=== PATIENT | female | born 1965 | race Caucasian/White ===

== ENCOUNTER 2016-11-12 07:21 | Day surgery (SDC) | payer BC ==
[2016-11-12] MEDS ORDERED: MIDAZOLAM HCL 2MG/2ML VIAL IV ONE (14:00)
[2016-11-12] MEDS ORDERED: KETOROLAC 30 MG/ML VIAL IVP ONE (14:00)
[2016-11-12] MEDS ORDERED: LIDOCAINE 2% MDV (20MG/ML) 20ML VIAL IV ONE (14:00)
[2016-11-12] MEDS ORDERED: PROPOFOL 10 MG/ML VIAL IV ONE (14:00)
[2016-11-12] MEDS ORDERED: *PACU ONLY* KETAMINE HCL 10 MG/ML (20ML) VIAL IV ONE (14:00)
--- NOTE | 2016-11-14 12:54 | Operative Note ---
DATE OF SURGERY: 11/12/2016 Surgeon: Cain Adan DO PREOPERATIVE DIAGNOSIS: Back mass. POSTOPERATIVE DIAGNOSIS: Back mass. OPERATION: Excision of low back mass measuring 4 x 4 cm in the subcu. Indication: The patient is a 50-year-old female who presented to the clinic with pain in her low back. She did have a palpable mass which was most likely a lipoma. We discussed excision, risks, benefits, and alternatives. Risks include bleeding, infection, nonresolution of her pain, recurrence. She understood this fully. Thereafter, consent was signed and questions answered. PROCEDURE: She was taken to the operating room and placed in a supine position. She was rotated into left lateral position. Her back was prepped and draped in the usual sterile fashion. At this time, sedation was given per the department of anesthesia. The area overlying the mass was anesthetized with a total of 8 mL of 0.25% Sensorcaine with epinephrine. At this time a 3 cm incision was made. This was carried down into the subcutaneous tissue where a lipoma was encountered. This did measure about 4 x 4 cm and did shell out well. This was then passed off the field. Hemodialysis was noted. The wound was closed with 3-0 and 4-0 Vicryl. Dermabond was placed. She was taken to the recovery room in satisfactory condition. Final pathology pending. CC: Dr. Leatha SOTO
== END 2016-11-12 09:55 | disposition home or self-care (01) ==
LOC: SUR 07:21
PROVIDERS: ATTEND Surgery
DX: D17.1 Benign lipomatous neoplasm of skin and subcutaneous tissue of trunk (principal); I10 Essential (primary) hypertension
CPT/HCPCS: J1885

== ENCOUNTER 2017-03-25 08:24 | Day surgery (SDC) | payer BC ==
[2017-03-25] MEDS ORDERED: PROPOFOL 10 MG/ML VIAL IV ONE (08:25)
[2017-03-25] MEDS ORDERED: LIDOCAINE 2% MDV (20MG/ML) 20ML VIAL IV ONE (08:25)
--- NOTE | 2017-03-26 13:40 | Operative Note ---
DATE OF SURGERY: 03/25/2017 REFERRING PHYSICIAN: Benjamin Zhang DO PREOPERATIVE DIAGNOSIS: See below. POSTOPERATIVE DIAGNOSIS: See below. PROCEDURE: COLONOSCOPY to the cecum with cold snare polypectomy x2. INDICATION: Colorectal cancer screening. Intravenous sedation was administered by the Department of Anesthesiology and included Diprivan titrated to effect. PROCEDURE: Following informed consent from this alert individual, including a discussion of the risks and benefits of the procedure and an opportunity for the patient to ask questions, the patient was placed in the left lateral decubitus position. A digital rectal examination was performed. No abnormalities were noted. Following this, an Olympus [id number] video colonoscope was inserted into the rectum without resistance. The rectal mucosa had a normal appearance, with normal folds and distensibility. The colonoscope was advanced up through the colon to the level of the cecum without much difficulty. Throughout the bowel, the mucosa appeared normal, the folds are normal and the bowel is fairly well distensible. The cecum was defined by noting the appendiceal orifice and ileocecal valve. From the base of the cecum, the colonoscope was then withdrawn back through the bowel, re-examining the mucosa upon withdrawal. No changes were noted until the rectum was reached. In the mid to distal rectum, there were 2 polyps noted. The smaller one measured 4 mm in size, the larger one 5-6 mm in size. Each was removed with cold snare polypectomy and suctioned through the endoscope into the collection trap. Retroflexion accomplished in the rectum failed to demonstrate any additional changes. The colon preparation overall was good. The endoscope was removed. The patient tolerated the procedure well and was returned to the recovery area in stable condition. IMPRESSION: Two rectal polyps removed with cold snare polypectomy as described above. RECOMMENDATIONS: Further recommendations will be forthcoming pending results of pathology obtained today. Followup also will be with Dr. Benjamin Zhang. As always, thank you for allowing me to participate in the care of your patient. CC: DO BRITTANY Mills
== END 2017-03-25 10:44 | disposition home or self-care (01) ==
LOC: HOP 08:24
PROVIDERS: ATTEND Internal Medicine Gastroenterology
DX: Z12.11 Encounter for screening for malignant neoplasm of colon (principal); D12.8 Benign neoplasm of rectum

== ENCOUNTER 2019-05-25 07:32 | Day surgery (SDC) | payer BC ==
[~2019-05-25 07:32] MED LIST: ACETAMINOPHEN 1,000 MG/100 ML BTL IVPB ONE
[2019-05-25] MEDS ORDERED: PROPOFOL 10 MG/ML VIAL IV ONE (07:33)
[2019-05-25] MEDS ORDERED: FENTANYL PF 100MCG/2ML VIAL IV ONE (07:33)
[2019-05-25] MEDS ORDERED: MIDAZOLAM HCL 2MG/2ML VIAL IV ONE (07:33)
[2019-05-25] MEDS ORDERED: KETOROLAC 30 MG/ML VIAL IVP ONE (07:33)
[2019-05-25] MEDS ORDERED: ONDANSETRON HCL IV 4 MG/2 ML VIAL IVP ONE (07:33)
[2019-05-25] MEDS ORDERED: RINGERS SOLUTION,LACTATED 1,000 ML IV ONE ×2 (08:13→10:02)
[2019-05-25] MEDS ORDERED: BUPIVACAINE 0.25% W/EPI MPF 30ML VIAL SQ ONE (09:40)
[2019-05-25] MEDS ORDERED: HYDROMORPHONE HCL 2 MG/ML VIAL IM ONE (10:16)
[2019-05-25] MEDS ORDERED: HYDROMORPHONE HCL 2 MG/ML VIAL IVP ONE (10:16)
[2019-05-25] MEDS ORDERED: HYDROCODONE/APAP 5/325MG TABLET PO ONE (10:32)
--- NOTE | 2019-05-25 15:41 | Operative Note ---
DATE OF SURGERY: 05/25/2019 SURGEON: Cain Adan DO PREOPERATIVE DIAGNOSIS: Back mass. POSTOPERATIVE DIAGNOSIS: Back mass. OPERATION: Excision of back mass measuring 5 x 4 cm down to the subcu. PROCEDURE: The patient is a 53-year-old female who was brought to the operating room and placed in a supine position. Local anesthesia was given per the department of anesthesia. The patient was placed on a stein bag with the right side up. At this time, propofol anesthesia was titrated to effect. The area around the mass was anesthetized with a total of 5 mL of 0.25% Sensorcaine with epinephrine. Incision was made and this was carried down through the subcutaneous tissue to the capsule of a moderate-size lipoma. This measured 5 x 4 cm. This was dissected free from surrounding tissue bluntly. This was then passed off the field. Hemostasis was noted. The wound was closed with 3-0 and 4- 0 Vicryl. Steri-Strips were applied. She was taken to the recovery room in stable condition. BRITTANY
== END 2019-05-25 10:49 | disposition home or self-care (01) ==
LOC: SUR 07:32
PROVIDERS: ATTEND Surgery
DX: D17.1 Benign lipomatous neoplasm of skin and subcutaneous tissue of trunk (principal); I10 Essential (primary) hypertension; E78.00 Pure hypercholesterolemia, unspecified; E66.9 Obesity, unspecified; Z68.42 Body mass index [BMI] 45.0-49.9, adult; G47.33 Obstructive sleep apnea (adult) (pediatric); F17.210 Nicotine dependence, cigarettes, uncomplicated
CPT/HCPCS: J1885; J2405; J7120

== ENCOUNTER → 2019-06-22 | Day surgery (SDC) | payer BC ==
[~2019-06-22] MED LIST changes: +BUPIVACAINE 0.25% W/EPI MPF 30ML VIAL SQ ONE; +DEXAMETHASONE 4 MG/ML 1ML VIAL IVP ONE; +DIPHENHYDRAMINE HCL 50 MG/ML VIAL IVP ONE; +FAMOTIDINE 20MG TABLET PO ONE; +FENTANYL PF 100MCG/2ML VIAL IV ONE; +KETOROLAC 30 MG/ML VIAL IVP ONE; +LIDOCAINE 2% MDV (20MG/ML) 20ML VIAL IV ONE; +MECLIZINE 25 MG TABLET PO ONE; +METOCLOPRAMIDE 10 MG TABLET PO ONE; +MIDAZOLAM HCL 2MG/2ML VIAL IV ONE; +ONDANSETRON HCL IV 4 MG/2 ML VIAL IVP ONE; +ONDANSETRON HCL IV 4 MG/2 ML VIAL IVP PRN; +PROPOFOL 10 MG/ML VIAL IV ONE; +RINGERS SOLUTION,LACTATED 1,000 ML IV ONE; +ROCURONIUM BROMIDE 50MG/5ML VIAL IV ONE; +SEVOFLURANE 250 ML INH ONE; +SUCCINYLCHOLINE 20 MG/ML 10ML IVP ONE; +SUGAMMADEX SODIUM 200 MG/2 ML VIAL IV ONE
--- NOTE | 2019-06-23 08:20 | Operative Note ---
DATE OF SURGERY: 06/22/2019 SURGEON: Cain Adan DO PREOPERATIVE DIAGNOSIS: Symptomatic biliary dyskinesia. POSTOPERATIVE DIAGNOSIS: Symptomatic biliary dyskinesia. OPERATION: Laparoscopic cholecystectomy. INDICATION: The patient is a 53-year-old female who is having ongoing right subcostal postprandial pain. Imaging studies did reveal a poor ejection fraction with extreme reduced pain. We did discuss cholecystectomy versus medical management. She desired surgical intervention. Risks include but are not limited to bleeding, infection, ductal injury, possible conversion to open, postoperative bile leak. She understood this fully. PROCEDURE: Thereafter, consent was signed and questions answered. She was taken to the operating room and placed in a supine position. General anesthesia was administered per the department of anesthesia. The patient's abdomen was prepped and draped in the usual sterile fashion. Due to her high BMI, I did have to place the umbilical port in the supraumbilical position. This area was anesthetized with a total of 5 mL of 0.25% Sensorcaine with epinephrine. A 2 cm supraumbilical incision was made. This was carried down to the anterior rectus fascia. This was incised. Elsa clamps were placed on the fascial edges and brought up into the wound. Stay sutures of 0 Vicryl were placed. Posterior rectus sheath was identified and incised. The peritoneal cavity was entered bluntly. At this time, a 10 mm bariatric balloon port was then placed. Adequate pneumoperitoneum was established. Under direct visualization, additional 5 mm epigastric and two 5 mm right subcostal ports were placed. The patient was then rotated into a steep reverse Trendelenburg with rotation to left. The gallbladder was identified. It was retracted in a cephalad and lateral direction. There were dense omental adhesions to the anterior aspect. These were taken down bluntly. Part of the anterior aspect of the duodenum was adherent as well. This was taken down with laparoscopic Metzenbaum scissors. No thermal sources were used near the bowel. At this time, the hepatocystic triangle was thoroughly dissected out. There was no aberrant anatomy, no posterior ductal structures. The cystic duct and cystic artery were clearly identified. The distal half of the gallbladder was released from the cystic plate elongating our retroductal window. We had an excellent critical view of safety. Each one was doubly clipped and cut in a standard fashion. Gallbladder was then taken off the liver bed with GALA Harmonic. This was extracted through the supraumbilical port. Right upper quadrant was rechecked and found to be hemostatic. No bleeding. No bile leaking. No bowel injury noted. The patient was leveled out. The pneumoperitoneum was released. All ports were removed. The fascia was closed with 0 Vicryl in a [id number] fashion. The skin at all ports was closed with 4-0 Vicryl. The patient was taken to the recovery room in stable condition. FINDINGS AT THE TIME OF SURGERY: Chronic cholecystitis. MTDD
== END | disposition home or self-care (01) ==
LOC: SUR 07:34
PROVIDERS: ATTEND Surgery
DX: K81.1 Chronic cholecystitis (principal); I10 Essential (primary) hypertension; G47.33 Obstructive sleep apnea (adult) (pediatric); E66.01 Morbid (severe) obesity due to excess calories; Z68.42 Body mass index [BMI] 45.0-49.9, adult; F17.200 Nicotine dependence, unspecified, uncomplicated
CPT/HCPCS: J0330; J1200; J1885; J2405; J3490; J7120